=== PATIENT | female | born 1980 | race Two or more races ===

== ENCOUNTER 2017-06-26 15:41 | Emergency (ER) | payer MEDICAID ==
[~2017-06-26] VITALS: Ht 160 cm; Wt 76.2 kg
[~2017-06-26 15:41] MED LIST: BENA10TA9 PO; FURO20TA PO; POTA-167 PO
[2017-06-26 16:05] VITALS: BP 135/95
== END 2017-06-26 18:11 | disposition home or self-care (01) ==
LOC: ER 15:45
DX: S40.021A Contusion of right upper arm, initial encounter (principal); Y09 Assault by unspecified means; I10 Essential (primary) hypertension; Z90.49 Acquired absence of other specified parts of digestive tract; Z79.899 Other long term (current) drug therapy